=== PATIENT | female | born 1980 | race Caucasian/White ===

== ENCOUNTER 2020-05-28 12:17 | Emergency (ER) | payer MEDICAID, SELFPAY ==
[2020-05-28 12:23] VITALS: BP 108/72; PULSE 76; RESP 14; TEMP 36.5; O2SAT 100; BMI 21.1
--- NOTE | 2020-05-28 12:42 | XR_ITS ---
EXAMINATION: XR SHOULDER, RIGHT CLINICAL INFORMATION: Injury. Pain. COMPARISON: None TECHNIQUE: AP external rotation, Grashey, scapular Y, and axillary views of the right shoulder. FINDINGS: A 1.2 x 0.7 x 0.6 cm calcification at the posterior margin of the humeral head is most consistent with calcific tendinitis at the teres minor and infraspinatus insertions. Small focus of calcific tendinitis is also suspected at the subscapularis tendon insertion, measuring 4 mm in diameter. No fracture or malalignment. Bone mineralization is normal. Joint spaces are well-preserved. XR/XR shoulder RT min 2V IMPRESSION: Calcific tendinitis at the humeral head. No acute osseous findings.
[2020-05-28] MEDS: Ketorolac Tromethamine 60 MG/2 ML VIAL IM (12:52)
--- NOTE | 2020-05-28 13:05 | ED_ITS ---
HPI - Extremity Problem General Chief complaint: Extremity Injury, Upper Stated complaint: rt arm pain Time Seen by Provider: 05/28/20 12:37 Source: patient Mode of arrival: ambulatory Limitations: no limitations History of Present Illness HPI Narrative: 40 yo female with past medical history of carpal tunnel syndrome, depression and fibromyalgia here with RUE pain x 1 week. She tells me she lifted a heavy jug of milk and felt some pain in her right shoulder. continued pain since then. The patient tells me she is using her father's sling from home to help hold her arm. She now feels like her arm and shoulder are stiff and more painful. No numbness or tingling. No fevers or chills. MD Complaint: extremity pain Onset (ago): week(s) (1 week ) Pain Consistency: constant Location: right Quality: sharp Radiation: none Relieving factors: nothing Exacerbating factors: nothing Associated symptoms: denies other symptoms Related Data Previous Rx's Medication Instructions Recorded cyclobenzaprine 10 mg PO TID PRN #14 tab 05/28/20 hydrocodone-acetaminophen 1 tab PO Q8H PRN #10 tab 05/28/20 naproxen 500 mg PO BID #30 tab 05/28/20 Allergies Allergy/AdvReac Type Severity Reaction Status Date / Time No Known Allergies Allergy Verified 05/28/20 12:27 Review of Systems Review of Systems: Yes all other systems are reviewed and are negative Constitutional: Constitutional: Reports no additional constitutional complaints, Denies body ache(s), Denies chills, Denies fever(s), Denies headache(s) and Denies weakness Eyes: Eyes: Reports no additional eye complaints and Denies change in vision ENT: Reports system reviewed and no additional complaints, except as documented, Denies dizziness, Denies headache(s), Denies nasal congestion, Denies nasal discharge and Denies neck pain Cardiovascular: Cardiovascular: Reports no additional cardiovascular complaints, Denies chest pain, Denies leg edema and Denies dyspnea Respiratory: Respiratory: Reports no additional respiratory complaints, Denies cough and Denies dyspnea Gastrointestinal: Gastrointestinal: Reports no additional gastrointestinal complaints, Denies abdominal pain, Denies diarrhea, Denies nausea and Denies vomiting Genitourinary: Genitourinary: Reports no additional female genitourinary complaints and Denies urinary incontinence Musculoskeletal: Musculoskeletal: Reports no additional musculoskeletal complaints, Denies back pain, Reports arthralgias, Reports joint swelling, Denies neck pain, Denies numbness and Denies tingling Integumentary/Breasts: Skin/Breast: Reports system reviewed and no additional complaints, except as docu and Denies rash Neurologic: Reports system reviewed and no additional complaints, except as documented, Denies Abnormal speech present, Denies dizziness, Denies headache(s), Denies numbness, Denies tingling and Denies weakness PMFSH Past Medical History Attestation statement: The following information was validated with the patient. Source: obtained from family and nursing notes reviewed Medical History Carpal tunnel syndrome Depression Fibromyalgia Social History Social History Alcohol intake: never Smoking Status: Never smoker Use of substances other than those prescribed or required for medical reasons: No Advance Directives: No Advance Directives Information Provided: No Physical Exam Vital Signs: Vital Signs: Vital Signs Temp Pulse Resp BP Pulse Ox 05/28/20 12:23 97.7 F 76 14 108/72 100 Body Mass Index 21.1 Const: General: cooperative, healthy appearing, comfortable and no acute di stress Orientation/consciousness: patient oriented x3 Limitations: no limitations HENMT: Head: Yes normal to inspection Ears: hearing grossly normal bilaterally General nose exam: Normal external nose present Face and sinus: Yes normal facial exam Mouth: Normal oral and palatal mucosa present Throat: Yes posterior oropharynx normal Eyes: General: appearance normal, both eyes and all related structures Pupils: Equal, round and reactive pupils present Neck: Neck: Yes normal visual inspection Chest: Chest palpation & inspection: normal inspection of the chest Resp: Effort & Inspection: normal respiratory effort Auscultation: clear to auscultation bilaterally Cardio: Rate: regular rate Rhythm: regular rhythm Peripheral pulses: Peripheral pulses 2+ throughout GI: Inspection: Yes normal to inspection Palpation (GI): Soft to palpation and nontender Auscultation: normal bowel sounds Back/Spine/Pelvis: Thoracic/Lumbar Spine: thoracic and lumbar spine normal to inspection Skin: General skin exam: no rashes or lesions noted Neuro: General: patient oriented x3, no focal motor deficits and normal sensation to monofilament Cranial nerves: Yes Equal, round and reactive pupils present Cognition (Neuro): normal cognition Speech: No Abnormal speech present Gait exam (Neuro): Normal gait present Motor exam (neuro): 5/5 motor strength present throughout Extrem: General: Yes normal to inspection Right upper extremity: normal to inspection, normal capillary refill and shoulder/upper arm (patient guarding her right arm. Able to touch left shoulder. +pulse distall) Details: tenderness (over anterior/posterior shoulder ) Location: of the proximal humerus and normal ROM (pain with abduction and limited d/t pain. ); no deformity and no unusual warmth; no cyanosis, no edema and joint enlargement noted Course Course Course Narrative: Will check imaging, give toradol IM. 1345-Xray shows calcific tendonitis. Reviewed worrisome signs and symptoms of when to return to the emergency department. Comfortable discharge home. MDM - Extremity (Nontraumatic) Imaging Data shoulder xray: Attestation: I personally reviewed and interpreted this imaging study as follows: Radiologist's impression: EXAMINATION: XR SHOULDER, RIGHT CLINICAL INFORMATION: Injury. Pain. COMPARISON: None TECHNIQUE: AP external rotation, Grashey, scapular Y, and axillary views of the right shoulder. FINDINGS: A 1.2 x 0.7 x 0.6 cm calcification at the posterior margin of the humeral head is most consistent with calcific tendinitis at the teres minor and infraspinatus insertions. Small focus of calcific tendinitis is also suspected at the subscapularis tendon insertion, measuring 4 mm in diameter. No fracture or malalignment. Bone mineralization is normal. Joint spaces are well-preserved. XR/XR shoulder RT min 2V IMPRESSION: Calcific tendinitis at the humeral head. No acute osseous findings. Discharge Plan Discharge Clinical Impression: Calcific tendonitis of right shoulder Patient Disposition: Home, Self-Care Instructions: Calcific Tendinitis (ED) Additional Instructions: Gentle stretching Ice to the area Call your PCP for a physical therapy referral Prescriptions: New cyclobenzaprine 10 mg tablet 10 mg PO TID PRN (Reason: muscle spasm) Qty: 14 RF: 0 naproxen 500 mg tablet 500 mg PO BID Qty: 30 RF: 0 hydrocodone-acetaminophen 5-300 mg tablet 1 tab PO Q8H PRN (Reason: pain) Qty: 10 RF: 0 Referrals: Physician,None [Primary Care Provider] - 2 days
== END 2020-05-28 13:45 | disposition home or self-care (01) ==
PROVIDERS: Emergency Provider Emergency Medicine
DX: M75.31 Calcific tendinitis of right shoulder (principal)
CPT/HCPCS: 73030; 96372; 99283; 99284; J1885